=== PATIENT | female | born 1985 | race Caucasian/White ===

== ENCOUNTER 2021-11-16 00:12 | Inpatient (IN) ==
[2021-11-16] MEDS ORDERED: MEPERIDINE 50 MG/1 ML VIAL IV PRN (00:32)
[2021-11-16] MEDS ORDERED: miSOPROStoL 200 MCG TABLET RECTAL PRN (00:32)
[2021-11-16] MEDS ORDERED: ONDANSETRON 4 MG/2 ML VIAL IV PRN (00:32)
[2021-11-16] MEDS ORDERED: TRANEXAMIC ACID 1,000 MG in SODIUM CHLORIDE 0.9% 100 ML IV PRN (00:32)
[2021-11-16] MEDS ORDERED: METHYLERGONOVINE 0.2 MG/1 ML AMP IM PRN (00:32)
[2021-11-16] MEDS ORDERED: BUTORPHANOL 2 MG/ML VIAL IV PRN (00:32)
[2021-11-16] MEDS ORDERED: OXYTOCIN/LR 20 UNIT/1,000 ML BAG IV ONE ×2 (00:32→17:00)
[2021-11-16] MEDS ORDERED: CARBOPROST TROMETHAMINE 250 MCG/ML AMP IM PRN (00:32)
[2021-11-16 00:56] LABS: Basophils # 0.1 10*3/uL (0.0-0.2); Basophils % 0.5 % (0.0-0.8); Eosinophils # 0.1 10*3/uL (0.0-0.87); Eosinophils % 0.7 % (0.00-10.9); Hematocrit 35.6 VOL% (35.7-47.0); Hemoglobin 12.1 GM/DL (12.0-16.0); Immature Granulocytes % 0.5 %; Immature Granulocytes Absolute 0.05 #; Lymphocytes # 3.1 10*3/uL (1.4-4.0); Lymphocytes % 27.7 % (21.3-54.2); Mean Corpuscular Volume 95.4 FL (87-102); Mean Platelet Volume 12.5 FL (9.6-12.0); Monocytes % 7.6 % (1.7-12.7); Platelet Count 199 T/CUMM (130-400); Red Blood Count 3.73 MC/CUMM (3.8-5.5); Red Cell Distribution Width 13.2 % (9.3-17.3)
[2021-11-16 01:30] LABS: Albumin 2.7 G/DL (3.4-5.0); Bilirubin,Total 0.4 MG/DL (0.20-1.00); Calcium 8.8 MG/DL (8.5-10.1); Osmolality,Calculated 273.7 MOS/KG (273-304); Potassium 3.6 MMOL/L (3.5-5.1); Total Protein 6.7 G/DL (6.4-8.2)
[2021-11-16] MEDS: LACTATED RINGERS 1,000 ML IV PRN ×2 (06:38→09:46)
[2021-11-16] MEDS: OXYTOCIN/LR 20 UNIT/1,000 ML BAG IV SCH ×2 (06:38→15:37)
[2021-11-16] MEDS ORDERED: ePHEDrine 50 MG/ML VIAL IV PRN (07:43)
[2021-11-16] MEDS ORDERED: diphenhydrAMINE 50 MG/1 ML VIAL IV PRN (07:43)
[2021-11-16] MEDS ORDERED: NALOXONE 0.4 MG/ML VIAL IV PRN (07:43)
[2021-11-16] MEDS ORDERED: PROMETHAZINE 25 MG/1 ML VIAL IM PRN (07:43)
[2021-11-16] MEDS ORDERED: CITRIC ACID/SODIUM CITRATE 30 ML UDCUP PO ONE (07:43)
[2021-11-16] MEDS ORDERED: FAMOTIDINE 20 MG/2 ML VIAL IV ONE (07:43)
[2021-11-16] MEDS ORDERED: hydrOXYzine HCL 25 MG/1 ML VIAL IM PRN (07:43)
[2021-11-16] MEDS ORDERED: fentaNYL 2 MCG/ROPIV 0.2% EPID 100 ML EPIDURAL SCH (08:00)
[2021-11-16 10:20] LABS: Bilirubin,Urine Negative (Negative); Blood, Urine Moderate mg/dL (Negative); Glucose,Urine (UA) Negative (Negative); Ketones,Urine 40 mg/dL (Negative); Mucus,Urine Occasional /LPF (Occasional); Nitrite,Urine Negative (Negative); Protein,Urine Negative (Negative); RBC,Urine 19 /HPF (0-4); Urine Appearance Clear (Clear); Urine Color Yellow (Yellow); Urine Urobilinogen 0.2 eU/dL (<2.0)
[2021-11-16] MEDS ORDERED: miSOPROStoL 200 MCG TABLET ONE (11:03)
[2021-11-16] MEDS ORDERED: CARBOPROST TROMETHAMINE 250 MCG/ML AMP IM ONE (11:04)
[2021-11-16] MEDS ORDERED: METHYLERGONOVINE 0.2 MG/1 ML AMP ONE (11:04)
[2021-11-16 12:02] LABS: Cord Arterial Blood HCO3 19.6 MMOL/L
[2021-11-16 12:04] LABS: Cord Venous Blood HCO3 20.9 MMOL/L; Cord Venous Blood PCO2 46.5 MMHG; Cord Venous Blood PO2 27.7
[2021-11-16] MEDS ORDERED: DIPH/TET/ACEL PERT BOOSTER VACCINE 0.5 ML VIAL IM ONE (16:04)
[2021-11-16] MEDS ORDERED: LANOLIN 50% CREAM 0.3 OZ TUBE TOP PRN (16:04)
[2021-11-16] MEDS ORDERED: BENZOCAINE 20%/MENTHOL 0.5% SPRAY 56 GM CAN TOP PRN (16:04)
[2021-11-16] MEDS ORDERED: MEASLES/MUMPS/RUBELLA VACCINE 0.5 ML VIAL SUBCUT ONE (16:04)
[2021-11-16] MEDS ORDERED: ACETAMINOPHEN 325 MG TABLET PO PRN (16:04)
[2021-11-16] MEDS ORDERED: HYDROCORTISONE 2.5% RECTAL CREAM 30 GM TUBE TOP PRN (16:04)
[2021-11-16] MEDS ORDERED: BISACODYL 10 MG SUPP RECTAL PRN (16:04)
[2021-11-16] MEDS ORDERED: WITCH HAZEL PADS 100/JAR TOP PRN (16:35)
[2021-11-16] MEDS: oxyCODONE/ACETAMINOPHEN 5-325 MG TABLET PO PRN (16:42)
[2021-11-16] MEDS: IBUPROFEN 800 MG TABLET PO PRN ×2 (16:43→23:51)
[2021-11-16] MEDS ORDERED: RHO(D) IMMUNE GLOBULIN 300 MCG SYRINGE IM ONE (17:00)
[2021-11-16] MEDS: DOCUSATE SODIUM 100 MG CAPSULE PO SCH (20:48)
[2021-11-17] MEDS: oxyCODONE/ACETAMINOPHEN 5-325 MG TABLET PO PRN ×3 (04:55→20:37)
[2021-11-17 05:17] LABS: Basophils # 0.1 10*3/uL (0.0-0.2); Basophils % 0.4 % (0.0-0.8); Eosinophils # 0.1 10*3/uL (0.0-0.87); Eosinophils % 0.5 % (0.00-10.9); Hematocrit 33.5 VOL% (35.7-47.0); Hemoglobin 11.3 GM/DL (12.0-16.0); Immature Granulocytes % 0.5 %; Immature Granulocytes Absolute 0.07 #; Lymphocytes # 2.2 10*3/uL (1.4-4.0); Lymphocytes % 16.5 % (21.3-54.2); Mean Corpuscular HGB Conc 33.7 GM/DL (32-36); Mean Corpuscular Volume 96.5 FL (87-102); Mean Platelet Volume 12.5 FL (9.6-12.0); Monocytes % 7.4 % (1.7-12.7); Neutrophils % 74.7 % (38.7-73.9); Platelet Count 147 T/CUMM (130-400); Red Blood Count 3.47 MC/CUMM (3.8-5.5); Red Cell Distribution Width 13.2 % (9.3-17.3)
[2021-11-17] MEDS: MULTIVITAMIN (PRENATAL) TABLET PO SCH (09:47)
[2021-11-17] MEDS: DOCUSATE SODIUM 100 MG CAPSULE PO SCH ×2 (09:47→20:34)
[2021-11-17] MEDS: IBUPROFEN 800 MG TABLET PO PRN ×2 (13:08→20:36)
[2021-11-18] MEDS: oxyCODONE/ACETAMINOPHEN 5-325 MG TABLET PO PRN (07:29)
[2021-11-18] MEDS: DOCUSATE SODIUM 100 MG CAPSULE PO SCH ×2 (07:30→15:19)
[2021-11-18] MEDS: MULTIVITAMIN (PRENATAL) TABLET PO SCH ×2 (07:30→15:19)
[2021-11-18 12:47] VITALS: BP 133/81
== END 2021-11-18 13:50 | disposition home or self-care (01) | DRG 807 ==
LOC: N.LD 00:12 → N.OB 15:47
PROVIDERS: ADMIT Obstetrics & Gynecology; ATTEND Obstetrics & Gynecology